=== PATIENT | male | born 1940 | race Caucasian/White ===

== ENCOUNTER 2019-06-24 17:24 | Emergency (ER) | payer OTHER ==
[~2019-06-24] VITALS: Ht 182.9 cm; Wt 77.1 kg
--- NOTE | 2019-06-24 17:24 | NUR ---
Patient BIBA BLS, transferred to bed 9. RN evaluating patient at bedside.
[2019-06-24 17:27] VITALS: BP 134/73
--- NOTE | 2019-06-24 17:36 | NUR ---
BIBA FROM HOME C/O BILATERAL LEG CRAMPING/PAIN X "A FEW WEEKS". PAIN 02/09. +CMS. NO INJURY/BRUISING/TRAUMA NOTED. PT ABLE TO LIFT BOTH LEGS OFF BED WITH EQUAL STRENGTH. PT AMBULATED FROM STRETCHER TO BED WITH ASSISTANCE, ABLE TO PUT PRESSURE ON BOTH FEET. PT ALERT AND AWAKE. VSS. BED IS DWON, LOCKED, BED RAIL X 1, ERMD TO SEE PT. PMH- HTN, RIGHT HIP FRACTURE
--- NOTE | 2019-06-24 17:41 | NUR ---
LAB AT BEDSIDE
--- NOTE | 2019-06-24 17:47 | NUR ---
Dr. Ruvalcaba evaluating patient at bedside.
[2019-06-24 17:49] LABS: BASOPHILS # (AUTO) 0.3 K/uL (0.00-0.22); BASOPHILS % (AUTO) 2.6 % (0.0-2.0); EOSINOPHILS # (AUTO) 0.1 K/uL (0-0.4); EOSINOPHILS % (AUTO) 0.6 % (0.0-4.0); HEMATOCRIT 35.6 % (36-52); HEMOGLOBIN 11.5 g/dL (12.0-18.0); LYMPHOCYTES # (AUTO) 1.3 K/uL (2.0-11.5); LYMPHOCYTES % (AUTO) 10.2 % (20.5-51.1); MEAN CORPUSCULAR HEMOGLOBIN 28 pg (27-31); MEAN CORPUSCULAR HGB CONC 32 g/dL (33-37); MONOCYTES # (AUTO) 0.6 K/uL (0.8-1.0); NEUTROPHILS % (AUTO) 81.6 % (42.2-75.2); PLATELET COUNT (AUTO) 455 K/uL (140-450); RED BLOOD CELL COUNT(AUTO) 4.09 MIL/uL (4.20-6.10); RED CELL DISTRIBUTION WIDTH 15.2 % (11.6-13.7); WHITE BLOOD COUNT (AUTO) 12.3 K/uL (4.8-10.8)
[2019-06-24] MEDS ORDERED: KETOROLAC 60 MG/2 ML VIAL IM ONE (17:55)
[2019-06-24 18:05] LABS: ANION GAP 9.6 (8-16); CARBON DIOXIDE 29.1 mmol/L (21-32); CHLORIDE 102 mmol/L (98-107); CREATININE 0.9 mg/dL (0.7-1.3); GLUCOSE 110 mg/dL (74-106); POTASSIUM 4.7 mmol/L (3.5-5.1); SODIUM SERUM 136 mmol/L (136-145); UREA NITROGEN, BLOOD 19 mg/dL (7-18)
[2019-06-24 18:10] LABS: ALBUMIN 1.5 g/dL (3.4-5.0); ASPARTATE AMINOTRANSFERASE 124 U/L (15-37); TOTAL BILIRUBIN 0.4 mg/dL (0.0-1.0)
[2019-06-24 18:35] VITALS: BP 143/76
--- NOTE | 2019-06-24 18:35 | NUR ---
Patient discharged with v/s stable. Written and verbal after care instructions given and explained. Patient alert, oriented and verbalized understanding of instructions. Ambulatory with steady gait. All questions addressed prior to discharge. ID band removed. Patient advised to follow up with PMD. Rx of MOTRIN given. Patient educated on indication of medication including possible reaction and side effects. Opportunity to ask questions provided and answered. SISTER AT BEDSIDE TO PICK PT UP
== END 2019-06-24 18:35 | disposition home or self-care (01) ==
LOC: MED 17:24
DX: M79.661 Pain in right lower leg (principal); M79.662 Pain in left lower leg; R25.2 Cramp and spasm; I10 Essential (primary) hypertension; Z95.1 Presence of aortocoronary bypass graft; Z98.890 Other specified postprocedural states
CPT/HCPCS: 36415; 80053; 85025; 96372; 99283; J1885